=== PATIENT | male | born 2000 | race Two or more races ===

== ENCOUNTER 2021-03-04 19:42 | Emergency (ER) | payer OTHER ==
[~2021-03-04] VITALS: Ht 160 cm; Wt 75.0 kg
[2021-03-04 21:59] VITALS: BP 130/64
== END 2021-03-04 23:11 | disposition home or self-care (01) ==
LOC: ED 21:46
DX: R06.02 Shortness of breath (principal); T50.995A Adverse effect of other drugs, medicaments and biological substances, initial encounter; Y92.89 Other specified places as the place of occurrence of the external cause
CPT/HCPCS: 99281